=== PATIENT | male | born 1940 | race Caucasian/White ===

== ENCOUNTER → 2017-09-10 | Outpatient (CLI) | payer OTHER ==
--- NOTE | 2017-09-10 13:05 | MRI ---
MRI lumbar spine without contrast Indication: Compression fracture, back pain Technique: Multisequence, multiplanar MR images of the lumbar spine were obtained without IV contrast . Comparison: None Findings: There is an acute-subacute compression fracture of the L3 vertebral body with approximately 50% height loss and involvement of both the anterior and middle columns. No definite fracture involv ement of the posterior elements or significant retropulsion is seen. There is diffuse T1 hypointense signal of the L3 vertebral body, which could be related to diffuse edema, although underlying lesion with pathologic fracture cannot be excluded without intravenous contrast. There is also mild edema an d irregularity of the L4 superior endplate, also compatible with fracture without significant associa saeid height loss. Remaining vertebral body heights and alignment are normal. No additional fracture or subluxation is i dentified. The conus terminates normally at L1. The cauda equina is unremarkable. Multiple bilateral renal cysts are noted. The remaining imaged paraspinal soft tissues are unremarkable. T12-L1: Unremarkable L1-L2: Unremarkable L2-L3: Broad-based disc bulge, mild facet arthropathy and ligamentum thickening results in mild canal and mild bilateral foraminal stenosis. L3-L4: Broad-based disc bulge, moderate facet arthropathy and ligamentum thickening results in severe canal and moderate-severe bilateral foraminal stenosis. L4-L5: Mild broad-based disc bulge, facet arthropathy and ligamentum thickening results in moderate c anal and mild bilateral foraminal stenosis. L5-S1: Mild broad-based disc bulge, facet arthropathy and ligamentum thickening results in mild canal stenosis. There is no significant neural foraminal narrowing. Impression: Acute-subacute 2 column compression fracture of the L3 vertebral body with approximately 50% height l oss but no significant retropulsion. Diffuse T1 hypointense signal of the L3 vertebral body could be related to diffuse edema, although underlying lesion with pathologic fracture cannot be excluded. Con flatbed stitcher contrast-enhanced MRI for further evaluation, if indicated. L4 superior endplate compression fracture without significant height loss or retropulsion. Multilevel degenerative changes, resulting in varying degrees of canal and foraminal stenosis, most s ignificant at L3-L4 as detailed above. Reported By:
== END ==
LOC: RAD 11:39
PROVIDERS: ATTEND Orthopaedic Surgery
DX: S32.030A Wedge compression fracture of third lumbar vertebra, initial encounter for closed fracture (principal); X58.XXXA Exposure to other specified factors, initial encounter
CPT/HCPCS: 72148

== ENCOUNTER → 2017-09-29 | Outpatient (CLI) | payer OTHER ==
[2017-09-29 14:40] LABS: BASOPHILS # (AUTO) 0.1 X10^3/uL (0.0-0.1); EOSINOPHILS # (AUTO) 0.1 x10^3/uL (0.0-0.2); EOSINOPHILS % (AUTO) 0.9 % (0.9-2.9); HEMATOCRIT 37.5 % (42.0-54.0); HEMOGLOBIN 12.4 g/dL (13.5-18.0); LYMPHOCYTES # (AUTO) 1.3 X10^3/uL (1.3-2.9); LYMPHOCYTES % (AUTO) 14.4 % (21.0-51.0); MEAN CORPUSCULAR HEMOGLOBIN 28.6 pg (27.0-34.0); MEAN CORPUSCULAR HGB CONC 32.9 g/dL (33.0-35.0); MEAN CORPUSCULAR VOLUME 86.9 fL (80.0-100.0); MEAN PLATELET VOLUME 6.9 fL (7.4-11.0); MONOCYTES # (AUTO) 0.6 x10^3/uL (0.3-0.8); MONOCYTES % (AUTO) 6.6 % (0.0-13.0); NEUTROPHILS % (AUTO) 77.1 % (42.0-75.0); PLATELET COUNT 267 X10^3/uL (150.0-450.0); RED BLOOD COUNT 4.32 X10^6/uL (4.7-6.0); RED CELL DISTRIBUTION WIDTH 17.8 % (11.6-16.5); WHITE BLOOD COUNT 9.1 X10^3/uL (3.6-10.0)
[2017-09-29 14:48] LABS: ALANINE AMINOTRANSFERASE 12 Units/L (12-78); ALBUMIN 3.4 g/dL (3.4-5.0); ALKALINE PHOSPHATASE 100 Units/L (46-116); ASPARTATE AMINO TRANSFERASE 10 Units/L (15-37); BLOOD UREA NITROGEN 15 mg/dL (7-18); CALCIUM 8.6 mg/dL (8.5-10.1); CARBON DIOXIDE 28.2 mmol/L (21-32); CHLORIDE 99 mmol/L (98-107); COR NA(FOR HYPERGLY) 135 mmol/L (136-145); CREATININE 1.12 mg/dL (0.70-1.30); SODIUM 135 mmol/L (136-145); TOTAL PROTEIN 7.5 g/dL (6.4-8.2); eGFR BLACK RACES > 60 (>60); eGFR NON BLACK RACES > 60 (>60)
--- NOTE | 2017-09-29 14:55 | RAD ---
Indication: Preop for back injection Exam: PA and lateral chest Comparison: None. Findings: The heart is normal. The pulmonary vessels are normal. The lungs are mildly hyperinflated. No consolidation or effusion is seen . There are bilateral shoulder replacements which appear in good position. Impression: Mild hyperinflation with no acute pulmonary abnormality. Bilateral shoulder replacements . Reported By:
[2017-09-29 15:39] LABS: ERYTHROCYTE SEDIMENTATION RATE 31 MM/HOUR (0-15)
== END ==
LOC: LAB 13:52
PROVIDERS: ATTEND Orthopaedic Surgery
DX: Z01.818 Encounter for other preprocedural examination (principal); Z01.810 Encounter for preprocedural cardiovascular examination; Z01.811 Encounter for preprocedural respiratory examination; Z79.899 Other long term (current) drug therapy; Z79.01 Long term (current) use of anticoagulants; Z11.8 Encounter for screening for other infectious and parasitic diseases; S32.030A Wedge compression fracture of third lumbar vertebra, initial encounter for closed fracture; X58.XXXA Exposure to other specified factors, initial encounter; R79.82 Elevated C-reactive protein (CRP); R70.0 Elevated erythrocyte sedimentation rate; Z96.611 Presence of right artificial shoulder joint; Z96.612 Presence of left artificial shoulder joint
CPT/HCPCS: 36415; 71046; 80053; 85025; 85610; 85652; 85730; 86140; 87640; 87641; 93005; 93010

== ENCOUNTER 2017-10-01 06:47 | Day surgery (SDC) | payer OTHER ==
[2017-10-01] MEDS ORDERED: D5 LR 1000 ML 1,000 ML IV ONE (06:51)
[2017-10-01] MEDS ORDERED: XYLOCAINE 1% and EPINEPHRINE 1:100,000 ONE ×2 (06:52→09:50)
[2017-10-01] MEDS ORDERED: BACTROBAN OINT ONE (06:53)
[2017-10-01] MEDS ORDERED: MARCAINE 0.25% INJ ONE ×2 (06:53→09:50)
[2017-10-01] MEDS: ANCEF 1 GM IV PREMIX* 1 GM/50 ML BAG IV ONE ×2 (07:49→09:16)
[2017-10-01] MEDS ORDERED: FENTANYL INJ 100 mcg ONE (08:25)
[2017-10-01] MEDS ORDERED: KETALAR ONE (08:26)
[2017-10-01] MEDS ORDERED: PERCOCET TAB 5/325 MG PO PRN (11:10)
[2017-10-01] MEDS ORDERED: ZOFRAN INJ 4 MG VIAL IVP PRN (11:10)
[2017-10-01 12:27] VITALS: BP 139/72
--- NOTE | 2017-10-01 13:54 | OR.GENERIC ---
Post-Op Note Generic - Post-Op Note Operative Report: PRE-OP DIAGNOSIS: Osteoporosis, pathologic fractures L3 POST-OP DIAGNOSIS: Osteoporosis, pathologic fractures L3 PROCEDURE: 1. KYPHON Balloon Kyphoplasty at L3 Level Insertion of KYPHON HV-R bone cement under low pressure at L3 levels. DATE OF SURGERY-10/01/2017 ANESTHESIA: mild sedation, local anesthesia COMPLICATIONS: None BLOOD LOSS: 10 cc approx. INDICATIONS: Mr. acevedo is a 77-year-old male who has had severe back pain that began approximately 1-1/2 months ago and is debilitating. He has been unresponsive to nonoperative treatment modalities including bed rest and analgesics. He presents with and is on medication therapy for, diabetes and hypertension. Radiographic imaging including CT and magnetic resonance imaging confirms compression fracture of the lumbar spine including L3. Based on these findings , we have decided to perform KYPHON Balloon Kyphoplasty on the LL3. PROCEDURE: The patient was brought to the operating room and local sedation was performed. The patient was positioned prone on the David table. The back was prepped and draped. The image intensifier (C-arm) was brought into position and the L3 pedicles were identified and marked with a skin marker. A transpedicular approach to the vertebral body was appropriate. An 11-gauge needle was advanced through the L3 pedicle to the junction of the pedicle and vertebral body on the right side. Positioning was confirmed on the AP and lateral plane. Following satisfactory placement of the needle, the stylet was removed. A guide pin was inserted through the 11g to a point 3mm from the anterior cortex. AP and lateral images were taken to verify position and trajectory. Alongside of the guide pin a 1-cm paramedian incision was made. The needle was then removed leaving the guide pin in place. The osteointroducer was placed over the guide pin and advanced through the pedicle. Once I was at the junction of the pedicle and the vertebral body, a lateral image was taken to ensure that the cannula was positioned approximately 1cm past the vertebral body wall. Through the cannula, a drill was advanced into the vertebral body under fluoroscopic guidance toward the anterior cortex, creating a channel. The anterior cortex was probed with the guide pin to ensure no perforations in the anterior cortex. After completing the entry into the vertebral body, a 15-mm inflatable bone tamp was inserted through the cannula and advanced under fluoroscopic guidance into the vertebral body near the anterior cortex. The radiopaque marker bands on the bone tamp were identified using AP and lateral images. The above sequence of instrument placement was then repeated on the left side of the L3 vertebral body. Once both bone tamps were in position, they were inflated to 0.5 cc and 50 psi. Expansion of the bone tamps was done sequentially in increments of 0.25 to 0.5 cc of contrast, with careful attention being paid to the inflation pressures and balloon position. The inflation was monitored with AP and lateral imaging. The final balloon volume was 3.5 cc on the right side and 3.5 cc on the left. There was no breach of the lateral wall or anterior cortex of the vertebral body. Direct reduction of the fracture was achieved, end plate movement was noted and approximately 5 mm of height baptism was achieved. Under fluoroscopic imaging, and the use of the bone void fillers, internal fixation was achieved through a low-pressure injection of KYPHON HV-R bone cement. The cavity was filled with a total volume of 3.5 cc on the right side and 3.5 cc on the left side. Once the bone cement had hardened, the cannulas were then removed. the L4 vertebral was again assessed and there was no significant collapse and showed only adjacent superior endplate changes. I decided that he would not benefit from L4 vertebroplasty as it is fairly stable and L3 seems to be the one which is causing more pain. So would not did not do any vertebroplasty of L4 level. Post-procedure, all incisions were closed with sutures. The patient was kept in the prone position for approximately 10 minutes post cement injection. He was then turned supine, monitored briefly and returned to the PACU. He was moving both her lower extremities at this time.
[2017-10-01] MEDS ORDERED: XYLOCAINE 2 % (PLAIN) ONE (14:00)
[2017-10-01] MEDS ORDERED: DIPRIVAN VIAL ONE (14:00)
[2017-10-01] MEDS ORDERED: VERSED ONE (14:00)
[2017-10-01] MEDS ORDERED: ROBINUL ONE (14:00)
== END 2017-10-01 12:19 | disposition home or self-care (01) ==
LOC: SURG1 06:47
PROVIDERS: ATTEND Orthopaedic Surgery
PROC: 0QS03ZZ Reposition Lumbar Vertebra, Percutaneous Approach (ICD-10-PCS; principal; 2017-10-01 08:30)
PROC: 0QU03JZ Supplement Lumbar Vertebra with Synthetic Substitute, Percutaneous Approach (ICD-10-PCS; principal; 2017-10-01 08:30)
DX: M80.88XA Other osteoporosis with current pathological fracture, vertebra(e), initial encounter for fracture (principal)
CPT/HCPCS: 76000; 99100; A4222; S0020; J0690; J2001; J2250; J3010; J3490; J7120